=== PATIENT | female | born 1950 | race African-American/Black ===

== ENCOUNTER 2020-08-22 18:40 | Inpatient (IN) | payer MEDICAID ==
[~2020-08-22] VITALS: Ht 167.6 cm; Wt 39.9 kg
--- NOTE | 2020-08-22 18:55 | NUR ---
[facility] SOLUTION ARCHITECT ADMITTING NOTES RECEIVED PATIENT, DIRECT ADMIT FROM [facility] IN MEDICALLY STABLE CONDITION. PATIENT A/O X3 ON ROOM AIR; BREATHING EVEN AND UNLABORED. SAFETY PRECAUTIONS IN PLACE; BED IN LOW POSITION AND LOCKED, RAILS UP X2, CALL LIGHT WITHIN REACH. 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
--- NOTE | 2020-08-22 19:50 | NUR ---
TELE/RN OPENING NOTE RECEIVED PATIENT RESTING IN BED. AWAKE, ALERT AND ORIENTED X 4. ABLE TO MAKE NEEDS KNOWN. NO COMPLAINTS OF PAIN AT THIS TIME. PATIENT IS A DIRECT ADMIT FROM [facility] WITH ADMITTING DX OF UTI, DEHYDRATION AND INCREASED LACTIC ACID. PATIENT HAS IV ACCESS TO RIGHT HAND WHICH IS INTACT AND PATENT. SKIN CHECK PERFORMED ON ADMISSION WITH RIGHT ABOVE THE KNEE AMPUTATION, SUPRAPUBIC CATHETER, AND LEFT NEPHROSTOMY TUBE. PATIENT REFUSED PHOTOS TO BE TAKEN. WOUND CONSULT INITIATED. TELE MONITOR READING SR. CALL LIGHT WITHIN REACH. ASPIRATION, FALL AND SAFETY PRECAUTIONS MAINTAINED. WILL CONTINUE TO MONITOR.
[2020-08-22 20:00] VITALS: BP 114/67
[2020-08-22] MEDS ORDERED: DOCU-141 PO (20:01)
[2020-08-22] MEDS ORDERED: MULT-754 PO (20:01)
[2020-08-22] MEDS ORDERED: MIRT15TA7 PO (20:01)
[2020-08-22] MEDS ORDERED: SENN-261 PO (20:01)
[2020-08-22] MEDS ORDERED: MAG HYDROX/AL HYDROX/SIMETH 30 ML UDC PO PRN (21:30)
[2020-08-22] MEDS ORDERED: MAGNESIUM HYDROXIDE 30 ML UDC PO PRN (21:30)
[2020-08-22] MEDS: CEFTRIAXONE 1 G in IV D5W 50 ML IV SCH (21:30)
[2020-08-22] MEDS ORDERED: Z GUARD REMEDY 2 OZ OINT TP PRN (21:30)
[2020-08-22] MEDS ORDERED: HYDROCODONE/APAP 5/325MG TABLET PO PRN (21:30)
[2020-08-22] MEDS ORDERED: ONDANSETRON HCL/PF 4 MG/2 ML VIAL IVP PRN (21:30)
[2020-08-22] MEDS ORDERED: ZOLPIDEM TARTRATE 5 MG TABLET PO PRN (21:30)
[2020-08-22] MEDS ORDERED: ACETAMINOPHEN 325 MG TABLET PO PRN (21:30)
--- NOTE | 2020-08-22 22:00 | NUR ---
TELE/RN NOTE PATIENTS IV DISLODGED. NEW IV INSERTED TO RIGHT FOREARM #20G. PATIENT TOLERATED PROCEDURE WELL. PATIENT CONTINUES ON IV NS @ 75ML/HR. WILL CONTINUE TO MONITOR.
[2020-08-22] MEDS: IV NS 0.9% 1,000 ML IV PRN (22:07)
[2020-08-22] MEDS: MORPHINE SULFATE INJ 2 MG/ML DISP.SYRIN IV PRN (22:09)
[2020-08-22] MEDS ORDERED: CEFTRIAXONE 1 G VIAL ONE (22:33)
[2020-08-23] VITALS: BP 92/61
[2020-08-23 04:00] VITALS: BP 104/63
[2020-08-23] MEDS: MORPHINE SULFATE INJ 2 MG/ML DISP.SYRIN IV PRN (04:13)
[2020-08-23 06:34] LABS: BASOPHILS % (AUTO) 0.3 % (0.0-2.0); EOSINOPHILS % (AUTO) 1.4 % (0.0-6.0); HEMATOCRIT 36 % (33-45); HEMOGLOBIN 11.6 g/dL (11.5-14.8); LYMPHOCYTES # (AUTO) 1.9 /CMM (0.8-4.8); LYMPHOCYTES % (AUTO) 23.4 % (20.0-44.0); MEAN CORPUSCULAR HGB CONC 33 g/dl (31.0-36.0); MEAN CORPUSCULAR VOLUME 97 fL (82-100); MONOCYTES # (AUTO) 0.5 /CMM (0.1-1.30); NEUTROPHILS # (AUTO) 5.6 /CMM (1.8-8.9); NEUTROPHILS % (AUTO) 68.9 % (43.0-81.0); PLATELET COUNT (AUTO) 374 /CMM (150-450); RED BLOOD CELL COUNT(AUTO) 3.65 MIL/uL (4.0-5.2); WHITE BLOOD COUNT (AUTO) 8.1 K/uL (4.3-11.0)
--- NOTE | 2020-08-23 06:50 | NUR ---
TELE/RN CLOSING NOTE PATIENT RESTING IN BED. AWAKE, ALERT AND ORIENTED X 4. ABLE TO MAKE NEEDS KNOWN. NO COMPLAINTS OF PAIN AT THIS TIME. IV ACCESS TO RIGHT FOREARM INTACT AND PATENT. CONTINUES ON IV NS @ 75ML/HR. SUPRAPUBIC AND NEPHROSTOMY TUBES BOTH DRAINED 275CC EACH. TELE MONITOR READING SR. CALL LIGHT WITHIN REACH. ASPIRATION, FALL AND SAFETY PRECAUTIONS MAINTAINED. WILL ENDORSE PLAN OF CARE TO ONCOMING SHIFT.
[2020-08-23 07:27] LABS: ALBUMIN 2.4 g/dL (3.4-5.0); BILIRUBIN,TOTAL 0.2 mg/dL (0.2-1.0); CALCIUM, SERUM 8.4 mg/dL (8.5-10.1); CREATININE 0.6 mg/dL (0.6-1.3); MAGNESIUM 1.8 mg/dL (1.8-2.4); PHOSPHORUS 2.5 mg/dL (2.5-4.9); POTASSIUM 3.9 mmol/L (3.5-5.1); TOTAL PROTEIN, SERUM 6.7 g/dL (6.4-8.2)
--- NOTE | 2020-08-23 07:30 | NUR ---
PT RECEIVED RESTING COMFORTABLY IN BED. NO S/S OR C/O PAIN OR DISTRESS NOTED. SIDERAILS UP X2, CALL LIGHT LEFT WITHIN REACH. WILL CONTINUE PLAN OF CARE.
[2020-08-23 07:48] LABS: THYROID STIMULATING HORMONE 0.407 uIU/mL (0.358-3.74)
[2020-08-23] MEDS: MULTIVITAMINS,THERAGRAN 1 UDTAB TABLET PO SCH (10:16)
[2020-08-23] MEDS: ENOXAPARIN SODIUM 40 MG/0.4 ML DISP.SYRIN SQ SCH ×2 (10:19→11:05)
--- NOTE | 2020-08-23 10:26 | NUR ---
WOUND CARE CONSULT: PT PRESENTS WITH SACRAL SCAR, LEFT HEEL SCAR, RT LOWER EXTREMITY AMPUTATION STUMP/SCAR, RT FLANK DIMPLED SCAR, SUPRAPUBIC CATH AND LEFT FLANK NEPHROSTOMY TUBE WITH DRAINAGE BAGS, ALL PRESENT ON ADMISSION. PT IS ABLE TO ASSIST WITH REPOSITIONING IN BED. RECOMMENDATIONS MADE FOR SKIN PROTECTION. DISCUSSED WITH NURSING STAFF. MD IN AGREEMENT WITH PLAN OF CARE. Addendum: 08/23/20 at 1029 by GLORIA FARRELL WNDNU Amended: Links added.
--- NOTE | 2020-08-23 14:09 | NUR ---
PT RECEIVED RESTING COMFORTABLY IN BED. NO S/S OR C/O PAIN OR DISTRESS NOTED. SIDERAILS UP X2, CALL LIGHT LEFT WITHIN REACH. WILL CONTINUE PLAN OF CARE. Addendum: 08/23/20 at 1409 by SNEHAL PLUMMER RN WRONG TIME
[2020-08-23] MEDS ORDERED: MIRTAZAPINE 15 MG TABLET PO SCH (18:00)
[2020-08-23] MEDS ORDERED: POLYETHYLENE GLYCOL 3350 17 GM POWD.PACK PO PRN (18:00)
[2020-08-23] MEDS: ENSURE ENLIVE CHOC 237 ML CAN PO SCH (18:07)
--- NOTE | 2020-08-23 18:19 | NUR ---
CHANGE OF SHIFT REPORT PT RESTING COMFORTABLY IN BED. NO S/S OR C/O PAIN OR DISTRESS NOTED. SIDE RAILS UP X2. CALL LIGHT LEFT WITHIN REACH. PT KEPT CLEAN, DRY, AND COMFORTABLE NO SIGNIFICANT CHANGES SINCE PREVIOUS SHIFT. WILL GIVE REPORT TO DILIP GARRISON.
[2020-08-23 20:00] VITALS: BP 120/68
--- NOTE | 2020-08-23 20:28 | NUR ---
MS/TELE/RN ON INITIAL ROUNDING, PATIENT WAS IN BED AWAKE, ALERT, ORIENTED, COMFORTABLE, NO C/O PAIN, NO DISTRESS NOTED, SUPRAPUBIC CATHETER AND LEFT NEPHROSTOMY NOTE, CALL LIGHT IN REACH, NEEDS ATTENDED, ENCOURAGED TO CALL FOR ASSISTANCE TO PREVENT FALL, VERBALIZED UNDERSTANDING, WILL MONITOR.
[2020-08-23] MEDS: CEFTRIAXONE 1 G in IV D5W 50 ML IV SCH (21:59)
--- NOTE | 2020-08-23 23:29 | NUR ---
MS/TELE/RN AT 2044, FOUND SUPRAPUBIC CATHETER PULLED OUT, BIBI CHAMPION, MADE NOTIFIED, PER JAYCEE, ENDORSE TO RN TOMORROW TO FOLLOW UP WITH THE UROLOGY CONSULT.
[2020-08-24] MEDS: IV NS 0.9% 1,000 ML IV PRN (02:52)
--- NOTE | 2020-08-24 07:00 | NUR ---
MS/TELE/RN PATIENT IS AWAKE, COMFORTABLE, NO C/O PAIN, NO DISTRESS NOTED, GOOD SLEEP NOTE, DURING THE SHIFT, ALL NEEDS ATTENDED AT THIS TIME, WILL CONTINUE TO MONITOR.
[2020-08-24 08:00] VITALS: BP 121/63
[2020-08-24] MEDS: MULTIVITAMINS,THERAGRAN 1 UDTAB TABLET PO SCH (08:50)
[2020-08-24] MEDS: ENOXAPARIN SODIUM 40 MG/0.4 ML DISP.SYRIN SQ SCH (08:50)
[2020-08-24] MEDS: ENSURE ENLIVE CHOC 237 ML CAN PO SCH ×2 (08:55→12:32)
[2020-08-24] MEDS ORDERED: SULF-11 PO (11:05)
--- NOTE | 2020-08-24 13:40 | NUR ---
DISCHARGE PATIENT IS AWAKE A/OX4 WITH NO SIGNS OF DISTRESS IN ROOM AIR, COMFORTABLE, NO C/O PAIN, IN R FOREARM INTACT RUNNING NS AT 75ML/HR, LEFT NEPHROSTOMY INTACT AND DRAINING, SUPRAPUBIC NEPHROSTOMY TUBE INTACT AND DRAINAGE. DISCHARGE INSTRUCTION AND EDUCATION WAS PROVIDED AND PATIENT VERBALIZED UNDERSTANDING AND SIGNED, BELONGING LIST WAS COMPLETED AND SIGNED. PATIENT REFUSED DISCHARGE SKIN PHOTOS BECAUSE SHE SAID, "THEY WERE JUST TAKEN YESTERDAY" . PATIENT IV LEFT FOREARM WAS REMOVED WITH NO SIGNS OF BLEEDING AND COVERED. PATIENT WAS TAKEN TO THE LOBBY VIA WHEELCHAIR ACCOMPANIED BY [employer] AND GOT INTO A PRIVATE CAR (DAUGHTERS).
--- NOTE | 2020-08-24 13:50 | NUR ---
RN NOTES PATIENT IS AWAKE0 A/OX4 WITH NO SIGNS OF DISTRESS IN ROOM AIR, COMFORTABLE, NO C/O PAIN, IN R FOREARM INTACT RUNNING NS AT 75ML/HR, LEFT NEPHROSTOMY INTACT AND DRAINING, SUPRAPUBIC NEPHROSTOMY TUBE INTACT AND DRAINAGE. SAFETY MEASURES APPLIED, CALL LIGHT WITHIN REACH, WILL CONTINUE TO MONITOR.
[2020-08-24 16:09] VITALS: BP 146/62
== END 2020-08-24 14:10 | disposition home or self-care (01) | DRG 720 ==
LOC: TELE 18:40 → MED 08-23 08:02
PROVIDERS: ADMIT Nurse Practitioner Acute Care; ATTEND Internal Medicine
DX: A41.9 Sepsis, unspecified organism (principal); E44.0 Moderate protein-calorie malnutrition; D68.69 Other thrombophilia; Z93.6 Other artificial openings of urinary tract status; N39.0 Urinary tract infection, site not specified; D63.8 Anemia in other chronic diseases classified elsewhere; F32.9 Major depressive disorder, single episode, unspecified; I25.10 Atherosclerotic heart disease of native coronary artery without angina pectoris; I73.9 Peripheral vascular disease, unspecified; M81.0 Age-related osteoporosis without current pathological fracture; F17.210 Nicotine dependence, cigarettes, uncomplicated; F10.20 Alcohol dependence, uncomplicated; Y90.9 Presence of alcohol in blood, level not specified; Z89.611 Acquired absence of right leg above knee; Z68.1 Body mass index [BMI] 19.9 or less, adult
CPT/HCPCS: 36415; 80053-TC; 80061-TC; 83735-TC; 84100-TC; 84443-TC; 85025-TC; 87081-TC; 87086-TC; G0378; J0696; J1650; J2270; J7030; J7060

== ENCOUNTER 2020-08-25 08:37 | Emergency (ER) | payer MEDICAID ==
[~2020-08-25] VITALS: Ht 167.6 cm; Wt 36.7 kg
[~2020-08-25 08:37] MED LIST: SULF-11 PO
[2020-08-25 08:52] VITALS: BP 126/74
--- NOTE | 2020-08-25 09:00 | NUR ---
DR. GARDNER REPLACED SUPRAPUBIC CATHETER, PT CLAU WELL.
--- NOTE | 2020-08-25 09:30 | NUR ---
Patient discharged to home in stable condition. Written and verbal after care instructions given daughter. Daughter verbalizes understanding of instruction.
== END 2020-08-25 09:30 | disposition home or self-care (01) ==
LOC: ER 08:48
DX: T83.028A Displacement of other urinary catheter, initial encounter (principal); K21.9 Gastro-esophageal reflux disease without esophagitis; Z98.890 Other specified postprocedural states; Z79.899 Other long term (current) drug therapy; Z93.6 Other artificial openings of urinary tract status